=== PATIENT | female | born 1990 | race Caucasian/White ===

== ENCOUNTER 2022-08-22 20:27 | Emergency (ER) | payer OTHER, SELFPAY ==
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
[2022-08-22 20:43] LABS: MANUAL DIFF FLAG NO
[2022-08-22 20:48] VITALS: RESP 16
[2022-08-22] MEDS: ondansetron HCL 4 MG/2 ML VIAL IVPUSH (20:48)
[2022-08-22] MEDS: Morphine Sulfate 4 MG/ML CARTRIDGE IVPUSH (20:48)
[2022-08-22 20:49] LABS: Basophils Absolute Auto 0.1 X10*3/uL (0.0-0.2); Basophils Percent Auto 0.6 % (0-2); Eosinophils Absolute Auto 0.4 X10*3/uL (0.0-0.4); Eosinophils Percent Auto 3.7 % (0-4); Hematocrit 44.4 % (37.0-47.0); Hemoglobin 14.5 g/dl (12.0-16.0); Imm Gran Abs Auto 0.04 X10*3/uL (0.00-0.03); Imm Gran Pct Auto 0.4 % (0.0-0.4); Lymphocytes Absolute Auto 4.5 X10*3/uL (1.2-4.9); Lymphocytes Percent Auto 41.4 % (20-40); Mean Corpuscular HGB Conc 32.7 g/dl (31.0-35.0); Mean Corpuscular Hemoglobin 29.4 pg (27.0-33.0); Mean Corpuscular Volume 90.1 fL (80.0-98.0); Mean Platelet Volume 9.8 fL (9.4-12.3); Monocytes Absolute Auto 0.8 X10*3/uL (0.1-1.2); Monocytes Percent Auto 6.9 % (2-11); Neutrophils Absolute Auto 5.1 x10*3/uL (2.0-8.3); Platelet Count 351 X10*3/uL (160-400); Red Blood Count 4.93 X10*6/uL (4.20-5.50); Red Cell Distribution Width 13.4 % (11.0-16.0); White Blood Count 10.8 X10*3/uL (4.8-10.8)
[2022-08-22 20:55] LABS: INTERNATIONAL NORM RATIO 0.9 (0.9-1.1); Prothrombin Time 10.2 SEC (10.0-13.1)
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
[2022-08-22 21:13] LABS: Alanine Aminotransferase 22 U/L (0-31); Albumin Level 4.5 g/dL (3.5-5.0); Alkaline Phosphatase 88 U/L (39-117); Anion Gap 20 (12-20); Aspartate Amino Transferase 33 U/L (5-31); Bilirubin Total 0.4 mg/dL (0.0-1.0); Blood Urea Nitrogen 13 mg/dL (9-16); Calcium 10.2 mg/dL (8.4-10.2); Carbon Dioxide 21 mmol/L (22-29); Chloride 106 mmol/L (96-108); Estimated Glomerular Filt Rate > 60; Glucose Random 89 mg/dL (60-115); HCG Quantitative < 2 mIU/mL; Potassium 3.6 mmol/L (3.3-5.1); Sodium 143 mmol/L (135-145)
[2022-08-22] MEDS: HYDROmorphone HCl 2 MG/ML VIAL IVPUSH (21:31)
--- NOTE | 2022-08-22 21:32 | PC.NURSE ---
Per no bc or lactic acid to brawn prior to abx administration.
[2022-08-22 21:33] VITALS: BP 116/53; PULSE 74; RESP 14; TEMP 36.8; O2SAT 97; BMI 29.1
[2022-08-22 21:40] VITALS: BP 125/87; PULSE 73; RESP 12; O2SAT 94
[2022-08-22 22:08] VITALS: BP 120/73; PULSE 87; RESP 18; TEMP 36.8; O2SAT 98
--- NOTE | 2022-08-22 22:18 | MHC.EDTECH ---
applied a posterior long arm splint to lt arm This tech assisted provider. Patient tolerated procedure well.
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
== END 2022-08-22 22:39 | disposition short-term general hospital (02) ==
PROVIDERS: Emergency Provider Internal Medicine
DX: S52.002A Unspecified fracture of upper end of left ulna, initial encounter for closed fracture (principal); S53.105A Unspecified dislocation of left ulnohumeral joint, initial encounter; M79.602 Pain in left arm; R07.89 Other chest pain; M25.512 Pain in left shoulder; V43.92XA Unspecified car occupant injured in collision with other type car in traffic accident, initial encounter; Y93.9 Activity, unspecified; Y92.410 Unspecified street and highway as the place of occurrence of the external cause; Y99.9 Unspecified external cause status; Z79.899 Other long term (current) drug therapy
CPT/HCPCS: 36415; 71045; 73020; 73070; 80053; 84702; 85025; 85610; 96374; 96375; 99285; J0690; J1170; J2270; J2405